=== PATIENT | male | born 1945 | race African-American/Black ===

== ENCOUNTER 2018-12-07 16:20 | Emergency (ER) | payer MEDICARE, MEDICAID ==
[~2018-12-07] VITALS: Ht 180.3 cm; Wt 87.1 kg
[2018-12-07] MEDS: Tetracaine 0.5% Opth 4ml Soln RIGHT EYE ONE (17:21)
[2018-12-07] MEDS: Fluorescein Strips RIGHT EYE ONE (17:21)
[2018-12-07] MEDS: Acetaminophen 500mg (ES) tab ORAL ONE (17:21)
--- NOTE | 2018-12-07 18:10 | Emergency Room Report ---
History of Present Illness General Chief Complaint: Headache Source: Patient Present Illness HPI 33-year-old male presents to the emergency department complaining of Itching and swelling to the left upper eyelid times one day. Patient also reports now having developed associated headache as well. Patient denies acute onset he denies nausea, vomiting, fevers, chills, neck pain or stiffness. Patient denies suspicion for foreign body in his eye he denies scratching sensation, increased lacrimation or discharge. PT. denies changes to his vision or vision loss. Pt. denies corrective lens use. Pt. reports some mild itchiness to the upper lid but states is very sensitive to the touch .Denies hx of allergies. Denies: Floaters, Flashing lights, or Diplopia/blurry vision. Allergies: Coded Allergies: No Known Allergies (Unverified , 12/07/18) Patient History Past Medical History: see triage record Past Surgical History: none Pertinent Family History: none Reviewed Nursing Documentation: PMH: Agreed; PSxH: Agreed Nursing Documentation-PMH Past Medical History: No Stated History Review of Systems All Other Systems: negative except mentioned in HPI Physical Exam Vital Signs Date Time Temp Pulse Resp B/P (MAP) Pulse Ox O2 Delivery O2 Flow Rate FiO2 12/07/18 16:38 98.4 82 18 138/78 98 Room Air Sp02 EP Interpretation: reviewed, normal General Appearance: no apparent distress, alert, GCS 15, non-toxic Head: normocephalic, atraumatic Eyes: bilateral eye normal inspection, bilateral eye PERRL ENT: hearing grossly normal, normal voice Neck: full range of motion Respiratory: chest non-tender, lungs clear, normal breath sounds, speaking full sentences Cardiovascular #1: regular rate, rhythm, no edema Gastrointestinal: normal bowel sounds, non tender, soft Rectal: deferred Genitourinary: normal inspection Musculoskeletal: back normal, gait/station normal, normal range of motion, non- tender Neurologic: alert, oriented x3, responsive, motor strength/tone normal, sensory intact, speech normal, grossly normal Psychiatric: judgement/insight normal Skin: normal color, no rash, warm/dry, well hydrated Lymphatic: no adenopathy Medical Decision Making PA Attestation Dr. Alcantar is my supervising Physician whom patient management has been discussed with. Diagnostic Impression: Primary Impression: Headache Qualified Codes: R51 - Headache Additional Impression: Allergic conjunctivitis Qualified Codes: H10.11 - Acute atopic conjunctivitis, right eye ER Course 33-year-old male presents to the emergency department complaining of Itching and swelling to the left upper eyelid times one day. Patient also reports now having developed associated headache as well. Patient denies acute onset he denies nausea, vomiting, fevers, chills, neck pain or stiffness. Patient denies suspicion for foreign body in his eye he denies scratching sensation, increased lacrimation or discharge. PT. denies changes to his vision or vision loss. Pt. denies corrective lens use. Pt. reports some mild itchiness to the upper lid but states is very sensitive to the touch .Denies hx of allergies. Denies: Floaters, Flashing lights, or Diplopia/blurry vision. Ddx considered but are not limited to: corneal abrasion, acute glaucoma, globe rupture, FB, Corneal Ulcer, conjunctivitis. Iridis Vital signs: are WNL, pt. is afebrile H&PE are most consistent with: corneal abrasion ORDERS: -Tetracaine and Fluorescein Stain of the Left eye: There is no increase fluorescein uptake Pt. had some relief of his symptoms with tetracaine drops. there was negative evidence of Fb, deep ulcer, or rupture. IOP's WNL 18-23 ( highest measurement, takes several times). ED INTERVENTIONS: none at this time. DISCHARGE: At this time pt. is stable for d/c to home. Will provide printed patient care instructions, and any necessary prescriptions. Care plan and follow up instructions have been discussed with the patient prior to discharge. . Last Vital Signs Date Time Temp Pulse Resp B/P (MAP) Pulse Ox O2 Delivery O2 Flow Rate FiO2 12/07/18 16:38 98.4 82 18 138/78 98 Room Air Disposition: HOME, SELF-CARE Condition: Stable Scripts Diphenhydramine Hcl (BENADRYL ALLERGY) 25 Mg Tablet 25 MG PO Q6HR, #20 TAB Prov: Maite Pat 12/07/18 Olopatadine Hcl (PATADAY) 2.5 Ml Drops 1 DROP OP DAILY, #2.5 ML Prov: Maite Pat 12/07/18 Aspirin/Acetaminophen/Caffeine (EXCEDRIN MIGRAINE GELTAB) 1 Each Tablet 1 EACH PO Q6HR, #20 TAB Prov: Maite Pta 12/07/18 Patient Instructions: Allergies, Qngw-to-Vvos, General Headache Without Cause Additional Instructions: Take medications as directed. Follow up with a [employer] Programmer in 3 days, even if your symptoms have resolved. --Please review list of primary care clinics, if you do not already have a primary care provider Return sooner to ED if new symptoms occur, or current symptoms become worse. - Please note that this Emergency Department Report was dictated using [employer] technology software, occasionally this can lead to erroneous entry secondary to interpretation by the dictation equipment. Maite Pat Dec 07, 2018 18:10
[2018-12-07] MEDS ORDERED: PATADAY2.5 ML OP (18:15)
[2018-12-07] MEDS ORDERED: BENADRYL ALLERG25 M1 PO (18:15)
[2018-12-07] MEDS ORDERED: EXCEDRIN MIGRA1 EACH PO (18:15)
--- NOTE | 2018-12-07 18:34 | NUR ---
ED Nurse Note: Patient is being discharged from medical care with prescriptions. Awake, alert and oriented x3. ID band were removed. Patient ambulated out with all personal belongings with steady gait.
[2018-12-07 18:43] VITALS: BP 127/70
== END 2018-12-07 18:45 | disposition home or self-care (01) ==
LOC: EDBD 16:20 → EMR 18:45
DX: R51 Headache (principal); H10.12 Acute atopic conjunctivitis, left eye
CPT/HCPCS: 99283